=== PATIENT | female | born 1970 | race Caucasian/White ===

== ENCOUNTER → 2019-07-06 | Outpatient (CLI) | payer OTHER | LOC: MC.RAD 13:29 | DX: N63.11 Unspecified lump in the right breast, upper outer quadrant (principal); R59.9 Enlarged lymph nodes, unspecified | CPT/HCPCS: G0279 ==

== ENCOUNTER → 2019-07-09 | Outpatient (CLI) | payer OTHER | LOC: MC.RAD 07:00 | DX: N63.11 Unspecified lump in the right breast, upper outer quadrant (principal); R59.9 Enlarged lymph nodes, unspecified; Z85.72 Personal history of non-Hodgkin lymphomas ==